=== PATIENT | male | born 1975 | race Caucasian/White ===

== ENCOUNTER 2017-08-06 10:49 | Emergency (ER) | payer MEDICAID ==
[~2017-08-06] VITALS: Ht 210.8 cm; Wt 86.2 kg
[2017-08-06 17:14] VITALS: BP 128/84
== END 2017-08-06 21:27 | disposition left against medical advice (07) ==
LOC: ER 10:49
DX: R20.0 Anesthesia of skin (principal); Z53.21 Procedure and treatment not carried out due to patient leaving prior to being seen by health care provider
CPT/HCPCS: 93005